=== PATIENT | female | born 1980 ===

== ENCOUNTER 2019-03-31 09:30 | Outpatient (CLI) | payer BC ==
--- NOTE | 2019-03-31 10:34 | MMO ---
Bilateral MAMMO Bilat Diag [facility]. CLINICAL HISTORY: Patient is 38 years old and is seen for diagnostic exam,skin thickening or retraction on clinical examination and pain in the left breast. The patient has the following family history of breast cancer: maternal aunt, at age 55, malignant (generic). The patient has no personal history of cancer. VIEWS: The views performed were: bilateral craniocaudal with tomosynthesis; bilateral mediolateral oblique with tomosynthesis; and bilateral mediolateral. FILMS COMPARED: The present examination has been compared to a prior imaging study performed at [facility] on 03/31/2019. MAMMOGRAM FINDINGS: There are scattered fibroglandular densities. There are no suspicious masses, suspicious calcifications, or new areas of architectural distortion. IMPRESSION: THERE IS NO MAMMOGRAPHIC EVIDENCE OF MALIGNANCY. A ROUTINE FOLLOW-UP MAMMOGRAM AT AGE 40 IS RECOMMENDED. THE RESULTS OF THIS EXAM WERE SENT TO THE PATIENT. ACR BI-RADS Category 1 - Negative MAMMOGRAPHY NOTE: 1. A negative mammogram report should not delay a biopsy if a dominant of clinically suspicious mass is present. 2. Approximately 10% to 15% of breast cancers are not detected by mammography. 3. Adenosis and dense breasts may obscure an underlying neoplasm.
--- NOTE | 2019-03-31 11:21 | ULT ---
LEFT BREAST ULTRASOUND: HISTORY: Pain and palpable mass at the upper aspect of the left breast, at the 12 o'clock position. The patie nt does not feel a mass. TECHNIQUE: Multiplanar irizarry-scale and color Doppler images were obtained in a targeted ultrasound of the upper a spect of the left breast. FINDINGS: Normal appearing breast parenchyma is seen in the upper aspect of the left breast. No suspicious mas s or shadowing is seen. No cyst is identified. IMPRESSION: BI-RADS category 1-Negative. Annual screening mammography is recommended at the age of 40. POS: [facility]
== END 2019-03-31 09:31 | disposition home or self-care (01) ==
LOC: BICMAMMO 09:30
PROVIDERS: ATTEND Family Medicine
DX: N63.22 Unspecified lump in the left breast, upper inner quadrant (principal); N64.4 Mastodynia; Z80.3 Family history of malignant neoplasm of breast
CPT/HCPCS: 77066; G0279